=== PATIENT | female | born 1940 | race African-American/Black ===

== ENCOUNTER 2020-01-26 14:31 | Observation (INO) | payer MEDICARE ==
--- NOTE | 2020-01-26 14:47 | ER Document Report ---
ED Medical Screen (RME) - General Stated Complaint: ALTERED MENTAL STATUS Time Seen by Provider: 01/26/20 14:38 Mode of Arrival: Medic Information source: Patient, Emergency Med Personnel Notes: 79-year-old female with history of DC hypertension presents emergency department with report via EMS that she was at the [employer] machine outside the [facility] in [place] when she became dizzy and unresponsive. Daughters put her in the car and took her to the fire department. Patient does not remember anything. She reports she woke up at the fire department and did not know where she was. Patient is now alert and oriented no obvious neuro deficits. Denies history of stroke. Patient is in a good mood joking happy. I have greeted and performed a rapid initial assessment of this patient. A comprehensive ED assessment and evaluation of the patient, analysis of test results and completion of the medical decision making process will be conducted by additional ED providers.
--- NOTE | 2020-01-26 15:24 | EKG REPORT ---
SEVERITY:- ABNORMAL ECG - SINUS RHYTHM MULTIFORM ATRIAL PREMATURE COMPLEXES NONSPECIFIC INFERIOR ST-T CHANGES : Confirmed by: Phil Velez MD 26-Jan-2020 15:24:08
[2020-01-26 15:36] LABS: HEMATOCRIT 44.4 % (36.0-47.0); HEMOGLOBIN 13.9 g/dL (12.0-15.5); MEAN CORPUSCULAR HEMOGLOBIN 29.9 pg (27.0-33.4); MEAN CORPUSCULAR HGB CONC 31.3 g/dL (32.0-36.0); MEAN CORPUSCULAR VOLUME 96 fl (80-97); PLATELET COUNT 256 10^3/uL (150-450); RED BLOOD COUNT 4.65 10^6/uL (3.72-5.28); RED CELL DISTRIBUTION WIDTH 15.6 % (11.5-14.0); WHITE BLOOD COUNT 8.4 10^3/uL (4.0-10.5)
[2020-01-26 15:57] LABS: INTERNATIONAL RATION (INR) 1.09; PROTHROMBIN TIME 14.1 SEC (11.4-15.4)
[2020-01-26 15:58] LABS: PARTIAL THROMBOPLASTIN TIME 29.8 SEC (23.5-35.8)
[2020-01-26 15:59] LABS: ABSOLUTE LYMPHOCYTES# (MANUAL) 0.8 10^3/uL (0.5-4.7); ABSOLUTE MONOCYTES # (MANUAL) 0.4 10^3/uL (0.1-1.4); BASOPHILS % (MANUAL) 0 % (0-2); EOSINOPHILS % (MANUAL) 1 % (0-6); LYMPHOCYTES % (MANUAL) 9 % (13-45); MONOCYTES % (MANUAL) 5 % (3-13); SEGMENTED NEUTROPHILS % (MAN) 85 % (42-78); TOTAL CELLS COUNTED 100
[2020-01-26 16:00] LABS: ANISOCYTOSIS SLIGHT; PLATELET CLUMPS PRESENT; PLATELET COMMENT ADEQUATE
--- NOTE | 2020-01-26 16:09 | RADIOLOGY REPORT (SQ) ---
EXAM DESCRIPTION: CT HEAD WITHOUT COMPLETED DATE/TIME: 01/26/2020 3:59 pm REASON FOR STUDY: altered mental status COMPARISON: None. TECHNIQUE: Axial images acquired through the brain without intravenous contrast. Images reviewed wi th bone, brain and subdural windows. Additional sagittal and coronal reconstructions were generated. Images stored on PACS. All CT scanners at this facility use dose modulation, iterative reconstruction, and/or weight based d osing when appropriate to reduce radiation dose to as low as reasonably achievable (ALARA). [facility]: Dose Right [facility]: CareDose [facility]: Dose Right [facility]: Teradose 4D [facility]: Make Works RADIATION DOSE: CT Rad equipment meets quality standard of care and radiation dose reduction techniq ues were employed. CTDIvol: 53.2 mGy. DLP: 991 mGy-cm. mGy. LIMITATIONS: None. FINDINGS: VENTRICLES: Prominent. CEREBRUM: No masses. No hemorrhage. No midline shift. Areas of low density in the white matter mos t likely due to chronic micro-vascular ischemic change. No evidence for acute infarction. CEREBELLUM: No masses. No hemorrhage. No alteration of density. No evidence for acute infarction. EXTRAAXIAL SPACES: Mild age-related involutional change. No fluid collections. No masses. ORBITS AND GLOBE: No intra- or extraconal masses. Normal contour of globe without masses. CALVARIUM: No fracture. PARANASAL SINUSES: No fluid or mucosal thickening. SOFT TISSUES: No mass or hematoma. OTHER: No other significant finding. IMPRESSION: MILD CHRONIC CHANGES OF ATROPHY AND MICROVASCULAR ISCHEMIA. NO ACUTE PROCESS. EVIDENCE OF ACUTE STROKE: NO. TECHNICAL DOCUMENTATION: JOB ID: [id number] Quality ID # [id number]: Final reports with documentation of one or more dose reduction techniques (e.g., Au tomated exposure control, adjustment of the mA and/or kV according to patient size, use of iterative reconstruction technique) 2010 [employer]- All Rights Reserved Reading location - IP/workstation name: [email or web address]
--- NOTE | 2020-01-26 16:09 | RADIOLOGY REPORT (SQ) ---
EXAM DESCRIPTION: CHEST SINGLE VIEW COMPLETED DATE/TIME: 01/26/2020 4:00 pm REASON FOR STUDY: altered mental status COMPARISON: None. EXAM PARAMETERS: NUMBER OF VIEWS: One view. TECHNIQUE: Single frontal radiographic view of the chest acquired. RADIATION DOSE: NA LIMITATIONS: None. FINDINGS: LUNGS AND PLEURA: Chronic interstitial changes. Hyperexpansion of the lungs. No acute in filtrate or effusion. Linear atelectasis in the left mid lung. MEDIASTINUM AND HILAR STRUCTURES: No masses. Contour normal. HEART AND VASCULAR STRUCTURES: Heart size is borderline. There is no pulmonary edema. BONES: No acute findings. HARDWARE: None in the chest. OTHER: No other significant finding. IMPRESSION: Borderline cardiomegaly without pulmonary edema. Chronic lung changes. TECHNICAL DOCUMENTATION: JOB ID: [id number] 2010 [employer]- All Rights Reserved Reading location - IP/workstation name: [email or web address]
--- NOTE | 2020-01-26 16:11 | ER Document Report ---
ED General <CAITLYN VICKERS JR - Last Filed: 01/26/20 21:40> - General Mode of Arrival: Medic - Related Data Home Medications: metoprolol. vit b-12. losartan. clopidogrel. symbicort. furosemid. potassium. atorvastatin. albuterol. spiriva. ventolin <NAHUN PAGE - Last Filed: 01/27/20 10:07> - General Chief Complaint: Altered Mental Status Stated Complaint: ALTERED MENTAL STATUS Time Seen by Provider: 01/26/20 14:38 - HPI Notes: 79-year-old female with history of oxygen dependent COPD transported here via EMS after experiencing syncopal episode while standing at an [employer]. Patient was apparently caught by family members and did not sustain any injury. She appeared to suddenly become unresponsive. No tonic-clonic movements. No urinary incontinence. No abrasions of tongue. Patient was unresponsive to sternal rub when EMS arrived. Blood sugar at that time was 105. She regained consciousness during transport to the hospital and does not remember exactly what happened. She denies any prior syncopal episodes or any history of seizures. She denies chest pain. She denies headache. She feels well at this time with no other specific complaints. She is chronically on 2 L of nasal O2. She denies use of drugs or alcohol. Denies any history of thromboembolic disease. Remote history of WI. (NAHUN PAGE) - Related Data Allergies/Adverse Reactions: No Known Allergies Allergy (Unverified 01/26/20 18:42) Past Medical History - General Information source: Patient, Emergency Med Personnel - Social History Smoking Status: Former Smoker Family History: Reviewed & Not Pertinent Patient has suicidal ideation: No Patient has homicidal ideation: No - Past Medical History Cardiac Medical History: Reports: Hx Coronary Artery Disease, Hx Heart Attack Pulmonary Medical History: Reports: Hx COPD Neurological Medical History: Reports: None. Denies: Hx Seizures Endocrine Medical History: Denies: Hx Diabetes Mellitus Type 1, Hx Diabetes Mellitus Type 2 Malignancy Medical History: Reports: None <NAHUN PAGE - Last Filed: 01/27/20 10:07> Review of Systems <NAHUN PAGE - Last Filed: 01/27/20 10:07> - Review of Systems Notes: Constitutional: Negative for fever. HENT: Negative for sore throat. Eyes: Negative for visual changes. Cardiovascular: Negative for chest pain. Respiratory: Negative for shortness of breath. Gastrointestinal: Negative for abdominal pain, vomiting or diarrhea. Genitourinary: Negative for dysuria. Musculoskeletal: Negative for back pain. Skin: Negative for rash. Neurological: Negative for headaches, weakness or numbness. 10 point ROS negative except as marked above and in HPI. (NAHUN PAGE) Physical Exam <NAHUN PAGE - Last Filed: 01/27/20 10:07> - Vital signs Vitals: Resp Pulse Ox 13 85 L 01/26/20 14:36 01/26/20 14:36 - Notes Notes: GENERAL: Elderly female appearing in no acute distress. SKIN: Good turgor no rashes. HEAD: Normocephalic atraumatic. EYES: PERRLA. EOMI. Conjunctivae and sclerae clear. EARS: CANALS AND TMS CLEAR. NOSE: CLEAR. MOUTH: Moist mucosa. Good dentition. No stridor or edema. No drooling. NECK: Supple. No masses or thyromegaly. No adenopathy. Carotids 2+ without bruits. No JVD. BACK: Symmetrical without tenderness. CHEST: Respirations unlabored. Breath sounds clear and symmetrical. HEART: Regular rhythm. Harsh grade 3 systolic murmur left second interspace without radiation. ABDOMEN: Soft nontender without masses, organomegaly or rebound. Bowel sounds normally active. No bruits. GENITALIA: Deferred. EXTREMITIES: 2+ bilateral. No calf tenderness. Cap refill less than 1.5 seconds. Dorsalis pedis and posterior tibial pulses 3+ and symmetrical. NEUROLOGICAL: GCS 15. Alert and oriented x3. Fluent speech. Cranial nerves II through XII intact. Sensorimotor and cerebellar normal. Normal tone. PSYCHIATRIC: Appropriate affect. (NAHUN PAGE) Course - Laboratory Result Diagrams: 01/26/20 15:00 01/26/20 16:25 - Diagnostic Test Radiology reviewed: Reports reviewed - EKG Interpretation by Ut EKG shows normal: Sinus rhythm Rhythm: Other - Multiform ventricular premature complexes <CAITLYN VICKERS JR - Last Filed: 01/26/20 21:40> - Laboratory Result Diagrams: 01/27/20 04:38 01/27/20 04:38 <NAHUN PAGE - Last Filed: 01/27/20 10:07> - Re-evaluation Re-evalutation: 01/26/20 18:39 Elderly lady with unexplained syncopal episode. Tox screen is negative. Blood sugar was normal. Patient is chronically oxygen dependent COPD. Her blood gas is consistent with her usual baseline on her oxygen which she was using at the time of the episode. EKG showed no acute ST changes. Her troponin is minimally elevated. Her d-dimer is also elevated. CTA of chest has been requested and remains pending at this time. I did a bedside [id number] ultrasound which demonstrated no gross abnormality of LV contraction. Aortic valve appears somewhat thickened and we do note that this lady has a harsh systolic murmur. We clearly need to rule out PE and other considerations would be aortic valvular disease or cardiac dysrhythmia. She will need formal echocardiogram and admission after CTA of the chest has been reported. Further care of this patie nt is turned over to Dr. Vickers at this time. (NAHNU PAGE) - Vital Signs Vital signs: Temp Pulse Resp BP Pulse Ox 98.3 F 86 18 135/70 H 90 L 01/27/20 07:20 01/27/20 08:13 01/27/20 08:13 01/27/20 07:20 01/27/20 08:13 - Laboratory Laboratory results interpreted by me: 01/26/20 01/26/20 01/26/20 15:00 15:47 16:25 MCHC 31.3 L RDW 15.6 H Seg Neuts % (Manual) 85 H Lymphocytes % (Manual) 9 L D-Dimer 4.55 H VBG pCO2 65.5 H* VBG HCO3 37.0 H Chloride Carbon Dioxide BUN Est GFR ( Amer) Est GFR (MDRD) Non-Af NT-Pro-B Natriuret Pep 01/26/20 01/26/20 16:25 16:25 MCHC RDW Seg Neuts % (Manual) Lymphocytes % (Manual) D-Dimer VBG pCO2 VBG HCO3 Chloride 96 L Carbon Dioxide 37 H BUN 30 H Est GFR ( Amer) 56 L Est GFR (MDRD) Non-Af 47 L NT-Pro-B Natriuret Pep 1020 H Critical Care Note - Critical Care Note Total time excluding time spent on procedures (mins): 90 <CAITLYN VICKERS JR - Last Filed: 01/26/20 21:40> - Critical Care Note Comments: Dr Falk and Dr Keller are patient's doctors. Patient has a history of COPD and I spoke with patient about when she began smoking at least 1 pack a day when she was 14 years old [place] and quit last October. She has been dependent on 2 L oxygen continuously since that time. Patient was otherwise in no distress when I spoke with her at 2099. I spoke with Dr. Arpit Dawson about this case at 2099 and he advised orthostatics. Orthostatics were performed and I was in the room with Renu PRESCOTT when patient sat up with tachycardia 101 with PACs and this slowly decreased to normal sinus and upon standing patient had a similar episode with myself on her left arm and Renu PRESCOTT on the right arm patient had some tachycardia which within a few minutes resolved itself. I again spoke with Dr. Arpit Dawson at 2131 and he advised admission. Patient has been O2 dependent for the last 2-1/2 years. The patient spoke with her 56-year-old son by telephone and was advised of her staying in the hospital. Also dental technician apprentice and nursing staff advised of issue with contrast with IV pump during CTA. (CAITLYN VICKERS JR) Discharge - Discharge Unit Admitted: Medical Floor <CAITLYN VICKERS JR - Last Filed: 01/26/20 21:40> - Discharge Unit Admitted: Medical Floor <NAHUN PAGE - Last Filed: 01/27/20 10:07> - Discharge Clinical Impression: Syncope and collapse, Hypoxia, Ex-smoker for less than 1 year, Supplemental oxygen dependent, Orthostatic dizziness Condition: Good Disposition: ADMITTED OBSERVATION
[2020-01-26 16:16] LABS: D-DIMER 4.55 ug/mL (0.00-0.50)
[2020-01-26 16:36] LABS: VENOUS BLOOD BASE EXCESS 9.6 mmol/L; VENOUS BLOOD PH 7.37 (7.30-7.42)
[2020-01-26 16:39] LABS: VENOUS BLOOD PCO2 65.5 mmHg (35-63)
[2020-01-26 16:54] LABS: ALBUMIN 3.5 g/dL (3.5-5.0); ALKALINE PHOSPHATASE 86 U/L (38-126); ASPARTATE AMINO TRANSFERASE 36 U/L (14-36); BILIRUBIN,DIRECT 0.3 mg/dL (0.0-0.4); BILIRUBIN,TOTAL 0.3 mg/dL (0.2-1.3); BLOOD UREA NITROGEN 30 mg/dL (7-20); CALCIUM 9.1 mg/dL (8.4-10.2); CHLORIDE 96 mmol/L (98-107); CREATINE KINASE 33 U/L (30-135); GLUCOSE 104 mg/dL (75-110); POTASSIUM 4.6 mmol/L (3.6-5.0)
[2020-01-26 17:00] LABS: ANION GAP 6 (5-19); CARBON DIOXIDE 37 mmol/L (22-30)
[2020-01-26 17:02] LABS: APPEARANCE,URINE CLEAR; BILIRUBIN,URINE NEGATIVE (NEGATIVE); COLOR,URINE STRAW; GLUCOSE, URINE NEGATIVE (NEGATIVE); KETONES,URINE NEGATIVE (NEGATIVE); PROTEIN,URINE NEGATIVE (NEGATIVE); URINE SPECIFIC GRAVITY 1.009; UROBILINOGEN,URINE NEGATIVE mg/dL (<2.0)
[2020-01-26 17:06] LABS: CREATINE KINASE MB 2.32 ng/mL (<4.55)
[2020-01-26 17:12] LABS: TROPONIN I 0.047 ng/mL
[2020-01-26 17:31] LABS: URINE AMPHETAMINES SCREEN NEGATIVE; URINE BARBITURATES SCREEN NEGATIVE; URINE BENZODIAZEPINES SCREEN NEGATIVE; URINE COCAINE SCREEN NEGATIVE; URINE MARIJUANA (THC) SCREEN NEGATIVE; URINE METHADONE SCREEN NEGATIVE; URINE PHENCYCLIDINE SCREEN NEGATIVE
--- NOTE | 2020-01-26 20:30 | RADIOLOGY REPORT (SQ) ---
CLINICAL INDICATION: syncope, elevated d-dimer. . TECHNIQUE: Noncontrast spiral axial CT imaging was obtained of the chest with multiplanar reconstructions. This exam was performed according to our departmental dose-optimization program, which includes automated exposure control, adjustment of the mA and/or kV according to patient size and/or use of iterative reconstruction techniques. Contrast enhanced arteriography imaging was not obtained due to reported IV infiltration. COMPARISON: None. CORRELATION: None. FINDINGS: The heart is prominent with coronary calcification.. No pericardial effusion. No bulky mediastinal adenopathy. Shotty mediastinal lymph nodes. The aorta is calcified but nonaneurysmal The lungs demonstrate chronic parenchymal changes. Detail obscured by motion. Interstitial fibrotic changes are also identified. There is a patchy area of airspace disease superior segment right lower lobe and anterior segment left upper lobe of unknown chronicity. Detail is obscured by patient motion and arms. Visualized abdominal contents demonstrate significant vascular calcification. Visualized bones demonstrate age-appropriate osteoarthritis. IMPRESSION: Artifact the patient's arms. Imaging is degraded by patient motion, with resultant artifact. The best possible images were obtained. Chronic parenchymal lung change. Patchy areas of airspace disease left upper lobe right lower lobe, of unknown chronicity. Contrast-enhanced imaging was not obtained due to IV infiltration.
[2020-01-26] MEDS ORDERED: MAGNESIUM HYDROXIDE SUSP 30 ML UDCUP PO PRN (21:31)
[2020-01-26] MEDS ORDERED: ACETAMINOPHEN 325 MG TABLET PO PRN (21:31)
[2020-01-26] MEDS ORDERED: MAG HYDROX/AL HYDROX/SIMETH SUSP 30 ML UDCUP PO PRN (21:31)
[2020-01-26] MEDS ORDERED: NORMAL SALINE 1000 ML 1,000 ML IV SCH (21:45)
[2020-01-26] MEDS ORDERED: LACTULOSE SYRUP 20 GM/30 ML UDCUP PO ONE (22:00)
[2020-01-26 22:03] LABS: PHOSPHORUS 4.1 mg/dL (2.5-4.5)
[2020-01-26] MEDS: HEPARIN SOD (PORCINE) 5,000 UNIT/ML 1 ML VIAL SUBCUT SCH (23:38)
[2020-01-26] MEDS: LEVALBUTEROL HCL NEB 1.25 MG/3 ML AMPUL NEB SCH (23:51)
--- NOTE | 2020-01-27 05:06 | PDOC H&P ---
History of Present Illness Admission Date/PCP: 01/26/20 21:44 CHAI CHIRINOS MD Patient complains of: Syncope History of Present Illness: KENNEDY BUTCHER is a 79 year old female with a past medical history of arthritis, generalized debility ambulating with walker, hypertension, coronary artery disease and oxygen dependent COPD. She presents to the emergency department after a syncopal episode while standing at an [employer] she was assisted to the ground by her daughters without injury. There is no report of limb shaking or seizure-like activity. Patient recalls coming to well in the ambulance and denied any pain preceding or subsequently. She denies palpitations, dizziness upon standing, previous episode. She denies recent change in medications and is otherwise felt well. In the emergency department she has an unremarkable work- up with exception to orthostatic hypotension and an EKG showing PVCs. Past Medical History Cardiac Medical History: Reports: Coronary Artery Disease, Myocardial Infarction Pulmonary Medical History: Reports: Chronic Obstructive Pulmonary Disease (COPD) Neurological Medical History: Reports: None Denies: Seizures Endocrine Medical History: Denies: Diabetes Mellitus Type 1, Diabetes Mellitus Type 2 Malignancy Medical History: Reports: None Social History Information Source: Patient Lives with: Alone - Daughters live next door Smoking Status: Former Smoker Electronic Cigarette use?: No Number of Years Smokin Last Time Smoked: less 1 year ago Frequency of Alcohol Use: None Hx Recreational Drug Use: No Drugs: None Hx Prescription Drug Abuse: No - Advance Directive Resuscitation Status: Full Code Family History Family History: COPD, Hypertension Parental Family History Reviewed: Yes Children Family History Reviewed: Yes Sibling(s) Family History Reviewed.: Yes Medication/Allergy Home Medications: Clopidogrel Bisulfate [Plavix 75 mg Tablet] 01/26/20 Cyanocobalamin (Vitamin B-12) [Vitamin B12] PO 01/26/20 Losartan Potassium 100 mg PO 01/26/20 Metoprolol Succinate [Toprol Xl 50 mg Tab.sr] 50 mg PO DAILY 01/26/20 Allergies/Adverse Reactions: No Known Allergies Allergy (Unverified 01/26/20 18:42) Review of Systems Constitutional: ABSENT: chills, fever(s), headache(s), weight gain, weight loss Eyes: ABSENT: visual disturbances Ears: ABSENT: hearing changes Cardiovascular: ABSENT: chest pain, dyspnea on exertion, edema, orthropnea, palpitations Respiratory: ABSENT: cough, hemoptysis Gastrointestinal: ABSENT: abdominal pain, constipation, diarrhea, hematemesis, hematochezia, nausea, vomiting Genitourinary: ABSENT: dysuria, hematuria Musculoskeletal: ABSENT: joint swelling Integumentary: ABSENT: rash, wounds Neurological: ABSENT: abnormal gait, abnormal speech, confusion, dizziness, foca l weakness, syncope Psychiatric: ABSENT: anxiety, depression, homidical ideation, suicidal ideation Endocrine: ABSENT: cold intolerance, heat intolerance, polydipsia, polyuria Hematologic/Lymphatic: ABSENT: easy bleeding, easy bruising Physical Exam Vital Signs: Temp Pulse Resp BP Pulse Ox 98.3 F 67 17 153/68 H 95 01/27/20 04:00 01/27/20 04:00 01/27/20 04:00 01/26/20 21:42 01/27/20 04:00 Intake & Output 01/25/20 01/26/20 01/27/20 11:59 11:59 11:59 Intake Total 100 Balance 100 Weight 54.1 kg General appearance: PRESENT: no acute distress, well-developed, well-nourished Head exam: PRESENT: atraumatic, normocephalic Eye exam: PRESENT: conjunctiva pink, EOMI, PERRLA. ABSENT: scleral icterus Ear exam: PRESENT: normal external ear exam Mouth exam: PRESENT: moist, tongue midline Neck exam: ABSENT: carotid bruit, JVD, lymphadenopathy, thyromegaly Respiratory exam: PRESENT: clear to auscultation keshia, prolonged expiratory phas, symmetrical. ABSENT: rales, rhonchi, wheezes Cardiovascular exam: PRESENT: RRR. ABSENT: diastolic murmur, rubs, systolic murmur Pulses: PRESENT: normal dorsalis pedis pul Vascular exam: PRESENT: normal capillary refill GI/Abdominal exam: PRESENT: normal bowel sounds, soft. ABSENT: distended, guarding, mass, organolmegaly, rebound, tenderness Rectal exam: PRESENT: deferred Extremities exam: PRESENT: full ROM, +1 edema - Bilaterally. ABSENT: calf t enderness, clubbing, pedal edema Neurological exam: PRESENT: alert, awake, oriented to person, oriented to place, oriented to time, oriented to situation, CN II-XII grossly intact. ABSENT: motor sensory deficit Psychiatric exam: PRESENT: appropriate affect, normal mood. ABSENT: homicidal ideation, suicidal ideation Skin exam: PRESENT: dry, intact, warm. ABSENT: cyanosis, rash Results Laboratory Results: 01/26/20 15:00 01/26/20 16:25 01/26/20 01/26/20 01/26/20 14:45 14:45 15:00 WBC Cancelled 8.4 RBC Cancelled 4.65 Hgb Cancelled 13.9 Hct Cancelled 44.4 MCV Cancelled 96 MCH Cancelled 29.9 MCHC Cancelled 31.3 L RDW Cancelled 15.6 H Plt Count Cancelled 256 Seg Neutrophils % Cancelled Not Reportable VBG pH VBG pCO2 VBG HCO3 VBG Base Excess Sodium Cancelled Potassium Cancelled Chloride Cancelled Carbon Dioxide Cancelled Anion Gap Cancelled BUN Cancelled Creatinine Cancelled Est GFR ( Amer) Cancelled Est GFR (Non-Af Amer) Cancelled Glucose Cancelled Calcium Cancelled Phosphorus Magnesium Total Bilirubin Cancelled AST Cancelled Alkaline Phosphatase Cancelled Total Protein Cancelled Albumin Cancelled Urine Color Urine Appearance Urine pH Ur Specific [place] Urine Protein Urine Glucose (UA) Urine Ketones Urine Blood Urine RBC (Auto) 01/26/20 01/26/20 01/26/20 16:25 16:25 16:25 WBC RBC Hgb Hct MCV MCH MCHC RDW Plt Count Seg Neutrophils % VBG pH 7.37 VBG pCO2 65.5 H* VBG HCO3 37.0 H VBG Base Excess 9.6 Sodium 139.2 Potassium 4.6 Chloride 96 L Carbon Dioxide 37 H Anion Gap 6 BUN 30 H Creatinine 1.13 Est GFR ( Amer) 56 L Est GFR (Non-Af Amer) Glucose 104 Calcium 9.1 Phosphorus 4.1 Magnesium 2.3 Total Bilirubin 0.3 AST 36 Alkaline Phosphatase 86 Total Protein 7.0 Albumin 3.5 Urine Color Urine Appearance Urine pH Ur Specific [place] Urine Protein Urine Glucose (UA) Urine Ketones Urine Blood Urine RBC (Auto) 01/26/20 16:30 WBC RBC Hgb Hct MCV MCH MCHC RDW Plt Count Seg Neutrophils % VBG pH VBG pCO2 VBG HCO3 VBG Base Excess Sodium Potassium Chloride Carbon Dioxide Anion Gap BUN Creatinine Est GFR ( Amer) Est GFR (Non-Af Amer) Glucose Calcium Phosphorus Magnesium Total Bilirubin AST Alkaline Phosphatase Total Protein Albumin Urine Color STRAW Urine Appearance CLEAR Urine pH 7.0 Ur Specific [place] 1.009 Urine Protein NEGATIVE Urine Glucose (UA) NEGATIVE Urine Ketones NEGATIVE Urine Blood NEGATIVE Urine RBC (Auto) 0 01/26/20 01/26/20 01/26/20 14:45 14:45 15:00 Creatine Kinase Cancelled CK-MB (CK-2) Cancelled Troponin I Cancelled NT-Pro-B Natriuret Pep Cancelled 01/26/20 01/26/20 01/26/20 16:25 16:25 16:25 Creatine Kinase 33 CK-MB (CK-2) 2.32 Troponin I 0.047 NT-Pro-B Natriuret Pep 1020 H 01/26/20 20:12 Creatine Kinase CK-MB (CK-2) Troponin I 0.076 NT-Pro-B Natriuret Pep Impressions: Chest X-Ray 01/26/20 14:44 IMPRESSION: Borderline cardiomegaly without pulmonary edema. Chronic lung changes. Head CT 01/26/20 14:44 IMPRESSION: MILD CHRONIC CHANGES OF ATROPHY AND MICROVASCULAR ISCHEMIA. NO ACUTE PROCESS. EVIDENCE OF ACUTE STROKE: NO. Chest/Abdomen CTA 01/26/20 17:39 IMPRESSION: Artifact the patient's arms. Imaging is degraded by patient motion, with resultant artifact. The best possible images were obtained. Chronic parenchymal lung change. Patchy areas of airspace disease left upper lobe right lower lobe, of unknown chronicity. Contrast-enhanced imaging was not obtained due to IV infiltration. Assessment and Plan - Diagnosis (1) Syncope and collapse Is this a current diagnosis for this admission?: Yes Plan: Most likely secondary to orthostatic hypotension with mild volume depletion. Telemetry monitoring, follow-up cardiac enzymes, orthostatic hypotension and physical therapy evaluation. (2) Debility Is this a current diagnosis for this admission?: Yes Plan: Follow-up PT eval, discharge planning ordered (3) Orthostatic dizziness Is this a current diagnosis for this admission?: Yes Plan: IV fluid challenge, TAMMY stockings, lifestyle modification changing position, follow-up orthostatic blood pressures (4) Supplemental oxygen dependent Is this a current diagnosis for this admission?: Yes Plan: Nasal cannula oxygen ordered. - Time Time Spent with patient: 25-34 minutes - Inpatient Certification Medical Necessity: Need Close Monitoring Due to Risk of Patient Decompensation
[2020-01-27 05:08] LABS: ABSOLUTE BASOPHILS # (AUTO) 0.1 10^3/uL (0.0-0.2); ABSOLUTE EOSINOPHILS # (AUTO) 0.1 10^3/uL (0.0-0.6); ABSOLUTE LYMPHOCYTES (AUTO) 0.5 10^3/uL (0.5-4.7); BASOPHILS % (AUTO) 0.7 % (0-2); EOSINOPHILS % (AUTO) 1.9 % (0-6); HEMATOCRIT 30.8 % (36.0-47.0); MEAN CORPUSCULAR HEMOGLOBIN 30.8 pg (27.0-33.4); MEAN CORPUSCULAR HGB CONC 32.5 g/dL (32.0-36.0); MEAN CORPUSCULAR VOLUME 95 fl (80-97); MONOCYTES % (AUTO) 13.4 % (3-13); PLATELET COUNT 274 10^3/uL (150-450); RED BLOOD COUNT 3.25 10^6/uL (3.72-5.28); RED CELL DISTRIBUTION WIDTH 15.1 % (11.5-14.0); TOTAL CELLS COUNTED % (AUTO) 100 %; WHITE BLOOD COUNT 7.7 10^3/uL (4.0-10.5)
[2020-01-27 05:24] LABS: BLOOD UREA NITROGEN 24 mg/dL (7-20); CALCIUM 8.6 mg/dL (8.4-10.2); GLUCOSE 81 mg/dL (75-110); POTASSIUM 4.3 mmol/L (3.6-5.0)
[2020-01-27 05:30] LABS: CHLORIDE 99 mmol/L (98-107)
[2020-01-27 05:44] LABS: CARBON DIOXIDE 40 mmol/L (22-30)
[2020-01-27 05:45] LABS: ANION GAP 3 (5-19)
[2020-01-27] MEDS: HEPARIN SOD (PORCINE) 5,000 UNIT/ML 1 ML VIAL SUBCUT SCH ×3 (06:18→23:30)
[2020-01-27] MEDS: LEVALBUTEROL HCL NEB 1.25 MG/3 ML AMPUL NEB SCH ×2 (08:13→16:18)
[2020-01-27] MEDS: CLOPIDOGREL BISULFATE 75 MG TABLET PO SCH (10:54)
[2020-01-27] MEDS: METOPROLOL SUCCINATE 50 MG TAB.SR.24H PO SCH (10:54)
[2020-01-27] MEDS: DOCUSATE SODIUM 100 MG CAPSULE PO SCH ×2 (10:54→18:12)
--- NOTE | 2020-01-27 16:38 | PDOC PROGRESS REPORT ---
Subjective Progress Note for:: 01/27/20 Subjective:: KENNEDY BUTCHER is a 79 year old female with a past medical history of arthritis, generalized debility ambulating with walker, hypertension, coronary artery disease and oxygen dependent COPD who was admitted early this morning by the Manager Of Finance for Syncope. The patient was seen on morning rounds and again this afternoon. Both times, she was seen sitting up to the recliner, comfortably, on supplemental oxygen via nasal cannula. She reports that she is feeling much better today. She does report that she became significantly short of breath when ambulating with the nurse this afternoon. She reports that that is about half the distance that she typically is able to tolerate. Otherwise, she denies fever, chest pain, palpitations, cough, abdominal pain, nausea vomiting diarrhea. She has no other questions or concerns at this time. No concerns per nursing. Reason For Visit: SYNCOPE ORTHOSTATIC HYPOTENSION Physical Exam Vital Signs: Temp Pulse Resp BP Pulse Ox 98.5 F 83 16 117/66 94 01/27/20 11:42 01/27/20 11:42 01/27/20 11:42 01/27/20 11:42 01/27/20 11:42 Intake & Output 01/26/20 01/27/20 01/28/20 06:59 06:59 06:59 Intake Total 100 240 Balance 100 240 Weight 40 kg General appearance: PRESENT: no acute distress, cooperative, thin, well- developed Head exam: PRESENT: atraumatic, normocephalic Eye exam: PRESENT: conjunctiva pink, EOMI, PERRLA. ABSENT: scleral icterus Ear exam: PRESENT: normal external ear exam Mouth exam: PRESENT: moist, tongue midline Neck exam: ABSENT: carotid bruit, JVD, lymphadenopathy, thyromegaly Respiratory exam: PRESENT: clear to auscultation keshia, prolonged expiratory phas, symmetrical, unlabored, other - supplemental oxygen via NC. ABSENT: rales, rhonchi, wheezes Cardiovascular exam: PRESENT: RRR. ABSENT: diastolic murmur, rubs, systolic murmur Pulses: PRESENT: normal dorsalis pedis pul Vascular exam: PRESENT: normal capillary refill GI/Abdominal exam: PRESENT: normal bowel sounds, soft. ABSENT: distended, guarding, mass, organolmegaly, rebound, tenderness Rectal exam: PRESENT: deferred Extremities exam: PRESENT: full ROM. ABSENT: calf tenderness, clubbing, pedal edema Musculoskeletal exam: PRESENT: ambulatory - with FWW Neurological exam: PRESENT: alert, awake, oriented to person, oriented to place, oriented to time, oriented to situation, CN II-XII grossly intact. ABSENT: motor sensory deficit Psychiatric exam: PRESENT: appropriate affect, normal mood. ABSENT: homicidal ideation, suicidal ideation Skin exam: PRESENT: dry, intact, warm. ABSENT: cyanosis, rash Results Laboratory Results: 01/27/20 04:38 01/27/20 04:38 01/26/20 01/26/20 01/26/20 16:25 16:25 16:25 WBC RBC Hgb Hct MCV MCH MCHC RDW Plt Count Seg Neutrophils % VBG pH 7.37 VBG pCO2 65.5 H* VBG HCO3 37.0 H VBG Base Excess 9.6 Sodium 139.2 Potassium 4.6 Chloride 96 L Carbon Dioxide 37 H Anion Gap 6 BUN 30 H Creatinine 1.13 Est GFR ( Amer) 56 L Glucose 104 Calcium 9.1 Phosphorus 4.1 Magnesium 2.3 Total Bilirubin 0.3 AST 36 Alkaline Phosphatase 86 Total Protein 7.0 Albumin 3.5 Urine Color Urine Appearance Urine pH Ur Specific [place] Urine Protein Urine Glucose (UA) Urine Ketones Urine Blood Urine RBC (Auto) 01/26/20 01/27/20 01/27/20 16:30 04:38 04:38 WBC 7.7 RBC 3.25 L Hgb 10.0 L D Hct 30.8 L MCV 95 MCH 30.8 MCHC 32.5 RDW 15.1 H Plt Count 274 Seg Neutrophils % 78.0 VBG pH VBG pCO2 VBG HCO3 VBG Base Excess Sodium 141.8 Potassium 4.3 Chloride 99 Carbon Dioxide 40 H* Anion Gap 3 L BUN 24 H Creatinine 0.97 Est GFR ( Amer) > 60 Glucose 81 Calcium 8.6 Phosphorus Magnesium Total Bilirubin AST Alkaline Phosphatase Total Protein Albumin Urine Color STRAW Urine Appearance CLEAR Urine pH 7.0 Ur Specific [place] 1.009 Urine Protein NEGATIVE Urine Glucose (UA) NEGATIVE Urine Ketones NEGATIVE Urine Blood NEGATIVE Urine RBC (Auto) 0 01/26/20 01/26/20 01/26/20 14:45 14:45 15:00 Creatine Kinase Cancelled CK-MB (CK-2) Cancelled Troponin I Cancelled NT-Pro-B Natriuret Pep Cancelled 01/26/20 01/26/20 01/26/20 16:25 16:25 16:25 Creatine Kinase 33 CK-MB (CK-2) 2.32 Troponin I 0.047 NT-Pro-B Natriuret Pep 1020 H 01/26/20 20:12 Creatine Kinase CK-MB (CK-2) Troponin I 0.076 NT-Pro-B Natriuret Pep Impressions: Chest X-Ray 01/26/20 14:44 IMPRESSION: Borderline cardiomegaly without pulmonary edema. Chronic lung changes. Head CT 01/26/20 14:44 IMPRESSION: MILD CHRONIC CHANGES OF ATROPHY AND MICROVASCULAR ISCHEMIA. NO ACUTE PROCESS. EVIDENCE OF ACUTE STROKE: NO. Chest/Abdomen CTA 01/26/20 17:39 IMPRESSION: Artifact the patient's arms. Imaging is degraded by patient motion, with resultant artifact. The best possible images were obtained. Chronic parenchymal lung change. Patchy areas of airspace disease left upper lobe right lower lobe, of unknown chronicity. Contrast-enhanced imaging was not obtained due to IV infiltration. Assessment and Plan - Diagnosis (1) Syncope and collapse Is this a current diagnosis for this admission?: Yes Plan: Most likely secondary to orthostatic hypotension with mild volume depletion. Pt was noted to become profoundly hypoxic and bradycardic w/ ambulation while on her baseline O2. SpO2 dropped to low 80s with HR trending down to mid-40s. Recovered with rest and increased O2. Patient is admitted to the medical floor on continuous cardiac telemetry. Rehydrated with IV fluids. Will obtain VQ scan due to elevated D-dimer, hypoxia, and syncope. Fall precautions. PT consultation. (2) Orthostatic dizziness Is this a current diagnosis for this admission?: Yes Plan: Resolved following IV fluids. Continue TAMMY hose. Fall precautions. (3) COPD (chronic obstructive pulmonary disease) Qualifiers: COPD type: unspecified COPD Qualified Code(s): J44.9 - Chronic obstructive pulmonary disease, unspecified Is this a current diagnosis for this admission?: Yes Plan: Stable and not in exacerbation at this time. Will continue her home regiment of Spiriva, Symbicort, and Dymista Continue supplemental oxygen as needed to keep SpO2 >89% CPAP nightly No indications for antibiotics or steroid therapy at this time. (4) HTN (hypertension) Is this a current diagnosis for this admission?: Yes Plan: Continue home dose Losartan and furosemide. Cardiac diet. (5) Debility Is this a current diagnosis for this admission?: Yes Plan: Pt consulted. Discharge planning consulted. (6) Supplemental oxygen dependent Is this a current diagnosis for this admission?: Yes Plan: Nasal cannula oxygen ordered. CPAP at night - Time Time Spent with patient: 35 or more minutes Medications reviewed and adjusted accordingly: Yes Anticipated discharge: Home Within: within 24 hours
[2020-01-27] MEDS ORDERED: FUROSEMIDE 40 MG TABLET PO SCH (18:00)
[2020-01-27] MEDS ORDERED: POTASSIUM CHLORIDE 10 MEQ TABLET.ER PO SCH (18:00)
[2020-01-27] MEDS: PHOSPHORUS #1 250 MG TABLET PO SCH (18:12)
[2020-01-28] MEDS: LEVALBUTEROL HCL NEB 1.25 MG/3 ML AMPUL NEB SCH ×2 (00:07→07:44)
[2020-01-28] MEDS: HEPARIN SOD (PORCINE) 5,000 UNIT/ML 1 ML VIAL SUBCUT SCH (05:27)
--- NOTE | 2020-01-28 08:53 | RADIOLOGY REPORT (SQ) ---
EXAM DESCRIPTION: CHEST 2 VIEWS COMPLETED DATE/TIME: 01/28/2020 8:36 am REASON FOR STUDY: DYSPNEA (ALSO FOR VQ SCAN)_ COMPARISON: 01/26/2020 EXAM PARAMETERS: NUMBER OF VIEWS: two views TECHNIQUE: Digital Frontal and Lateral radiographic views of the chest acquired. RADIATION DOSE: NA LIMITATIONS: none FINDINGS: LUNGS AND PLEURA: There is hyperexpansion. Linear scarring in the left midlung field. Bl unting of the costophrenic angles most likely pleural thickening. No focal consolidation. No pneumo thorax. MEDIASTINUM AND HILAR STRUCTURES: No masses or contour abnormalities. HEART AND VASCULAR STRUCTURES: Heart is slightly enlarged. No failure. BONES: No acute findings. HARDWARE: None in the chest. OTHER: No other significant finding. IMPRESSION: COPD with chronic parenchymal changes. No acute findings. TECHNICAL DOCUMENTATION: JOB ID: [id number] [employer]- All Rights Reserved Reading location - IP/workstation name: [email or web address]
--- NOTE | 2020-01-28 08:55 | RADIOLOGY REPORT (SQ) ---
EXAM DESCRIPTION: NM LUNG PERFUSION SCAN COMPLETED DATE/TIME: 01/28/2020 8:35 am REASON FOR STUDY: dyspnea COMPARISON: None. RADIONUCLIDE AND DOSE: 4.98 millicuries TC-99m MAA The route of agent administration: Intravenous TECHNIQUE: Eight views of the lungs acquired following injection of MAA. LIMITATIONS: None. FINDINGS: PERFUSION: Mild heterogeneous uptake on perfusion images. No large defects.. OTHER: No other significant finding. IMPRESSION: Heterogeneous uptake. No large segmental defects. TECHNICAL DOCUMENTATION: JOB ID: [id number] [employer]- All Rights Reserved Reading location - IP/workstation name: [email or web address]
[2020-01-28] MEDS: DOCUSATE SODIUM 100 MG CAPSULE PO SCH (09:49)
[2020-01-28] MEDS: METOPROLOL SUCCINATE 50 MG TAB.SR.24H PO SCH (09:49)
[2020-01-28] MEDS: CLOPIDOGREL BISULFATE 75 MG TABLET PO SCH (09:50)
[2020-01-28] MEDS: PHOSPHORUS #1 250 MG TABLET PO SCH (09:50)
[2020-01-28] MEDS ORDERED: FLUTICASONE/VILANTEROL 200-25 MCG/DOSE IH SCH (10:00)
[2020-01-28] MEDS ORDERED: UMECLIDINIUM BROMIDE 62.5 MCG/DOSE IH SCH (10:00)
[2020-01-28] MEDS ORDERED: (PENDING PHARMACY ID) (Azelastine/Fluticasone [Dymista Nasal Spray] 1 SPRAY) NASL SCH (10:00)
[2020-01-28] MEDS ORDERED: LOSARTAN POTASSIUM 50 MG TABLET PO SCH (10:00)
[2020-01-28] MEDS ORDERED: (PENDING PHARMACY ID) (Tiotropium Bromide [Spiriva Respimat] 1 PUFF) IH SCH (10:00)
[2020-01-28] MEDS ORDERED: (PENDING PHARMACY ID) (Losartan Potassium [Losartan Potassium] 100 MG) PO SCH (10:00)
[2020-01-28] MEDS ORDERED: FLUTICASONE NASAL SPRAY 50 MCG/SPRY 120 SPRAY/16 GM NASL SCH (10:00)
[2020-01-28 14:24] VITALS: BP 171/74
--- NOTE | 2020-01-28 16:08 | PDOC DISCHARGE SUMMARY ---
Impression - Admit/DC Date/PCP Admission Date/Primary Care Provider: 01/26/20 21:44 CHAI CHIRINOS MD Discharge Date: 01/28/20 - Discharge Diagnosis (1) Syncope and collapse Is this a current diagnosis for this admission?: Yes (2) Orthostatic dizziness Is this a current diagnosis for this admission?: Yes (3) COPD (chronic obstructive pulmonary disease) Is this a current diagnosis for this admission?: Yes (4) HTN (hypertension) Is this a current diagnosis for this admission?: Yes (5) Debility Is this a current diagnosis for this admission?: Yes (6) Supplemental oxygen dependent Is this a current diagnosis for this admission?: Yes - Additional Information Resuscitation Status: Full Code Discharge Activity: Activity As Tolerated, Balance Activity w/Rest, Supervised Activity Referrals: [employer] [facility] [Outside] - 01/31/20 CHAI CHIRINOS MD [Primary Care Provider] - 02/07/20 1:30 pm Home Medications: Clopidogrel Bisulfate [Plavix 75 mg Tablet] 75 mg PO DAILY 01/26/20 Losartan Potassium 100 mg PO DAILY 01/26/20 Metoprolol Succinate [Toprol Xl 50 mg Tab.sr] 50 mg PO DAILY 01/26/20 Acetaminophen [Tylenol 325 mg Tablet] 650 mg PO Q4HP PRN tablet 01/27/20 Albuterol Sulfate [Ventolin 0.083% Neb 2.5 mg/3 mL Ampul] 1 vial IH RTBIDP PRN 01/27/20 Albuterol Sulfate [Ventolin Hfa 8 gm Mdi] 2 puff IH Q6HP PRN 01/27/20 Atorvastatin Calcium [Lipitor 20 mg Tablet] 20 mg PO QHS 01/27/20 Azelastine/Fluticasone [Dymista Nasal [place]] 1 spray NASL DAILY 01/27/20 Budesonide/Formoterol Fumarate [Symbicort HFA 160-4.5 mcg Inhaler 6 gm] 2 puff IH BID 01/27/20 Cyanocobalamin (Vitamin B-12) [Vitamin B-12] 1,000 mcg PO DAILY 01/27/20 Furosemide [Lasix 40 mg Tablet] 40 mg PO Q2D 01/27/20 Guaifenesin [Cough Syrup] 5 ml PO ASDIR PRN 01/27/20 Phosphorus #1 [K-Phos Neutral 250 mg Tablet] 250 mg PO BID 01/27/20 Potassium Chloride [Klor-Con 10 Meq Tablet ER] 10 meq PO Q2D 01/27/20 Tiotropium [place] [Spiriva Respimat] 1 puff IH DAILY 01/27/20 History of Present Illiness History of Present Illness: Per H&P by Dr. Dawson: KENNEDY BUTCHER is a 79 year old female with a past medical history of arthritis, generalized debility ambulating with walker, hypertension, coronary artery disease and oxygen dependent COPD. She presents to the emergency department after a syncopal episode while standing at an [employer] she was assisted to the ground by her daughters without injury. There is no report of limb shaking or seizure-like activity. Patient recalls coming to well in the ambulance and denied any pain preceding or subsequently. She denies palpitations, dizziness upon standing, previous episode. She denies recent ch coel in medications and is otherwise felt well. In the emergency department she has an unremarkable work-up with exception to orthostatic hypotension and an EKG showing PVCs. Hospital Course Hospital Course: (1) Syncope and collapse Most likely secondary to orthostatic hypotension with mild volume depletion. Possible related to hypoxia as the patient was noted to have profound desaturation event with minimal activity. Patient was admitted to the medical floor on continuous cardiac telemetry. She was rehydrated with IV fluids. VQ scan, fortunately, negative for pulmonary embolus. PT consultation obtained; recommends continued home therapy services. (2) Orthostatic dizziness Resolved following IV fluids. Continue TAMMY hose. (3) COPD (chronic obstructive pulmonary disease) Stable and not in exacerbation at this time. Continue home regiment of Spiriva, Symbicort, and Dymista Continue supplemental oxygen as needed to keep SpO2 >89%; recommend increasing to 4 lpm CPAP nightly No indications for antibiotics or steroid therapy at this time. (4) HTN (hypertension) Continue home dose Losartan and furosemide. Cardiac diet. (5) Debility Pt consulted. Discharge planning consulted. Arrangements have been made for patient to receive home health and PT services. (6) Supplemental oxygen dependent Nasal cannula oxygen CPAP at night Physical Exam Vital Signs: Temp Pulse Resp BP Pulse Ox 97.5 F 71 17 171/74 H 92 01/28/20 14:12 01/28/20 14:12 01/28/20 14:12 01/28/20 14:12 01/28/20 14:12 Intake & Output 01/27/20 01/28/20 01/29/20 06:59 06:59 06:59 Intake Total 100 840 120 Balance 100 840 120 Weight 40 kg 42 kg General appearance: PRESENT: no acute distress, cooperative, thin, well- developed, well-nourished Head exam: PRESENT: atraumatic, normocephalic Eye exam: PRESENT: conjunctiva pink, EOMI, PERRLA. ABSENT: scleral icterus Mouth exam: PRESENT: moist, tongue midline Respiratory exam: PRESENT: clear to auscultation keshia, symmetrical, unlabored, other. ABSENT: rales, rhonchi, wheezes Cardiovascular exam: PRESENT: RRR. ABSENT: diastolic murmur, rubs, systolic murmur Vascular exam: PRESENT: normal capillary refill Extremities exam: PRESENT: full ROM. ABSENT: calf tenderness, clubbing, pedal edema Musculoskeletal exam: PRESENT: ambulatory - With front wheel walker Neurological exam: PRESENT: alert, awake, oriented to person, oriented to place, oriented to time, oriented to situation, CN II-XII grossly intact. ABSENT: motor sensory deficit Psychiatric exam: PRESENT: appropriate affect, normal mood. ABSENT: homicidal ideation, suicidal ideation Skin exam: PRESENT: dry, intact, warm. ABSENT: cyanosis, rash Results Laboratory Results: WBC 7.7 10^3/uL (4.0-10.5) 01/27/20 04:38 RBC 3.25 10^6/uL (3.72-5.28) L 01/27/20 04:38 Hgb 10.0 g/dL (12.0-15.5) L D 01/27/20 04:38 Hct 30.8 % (36.0-47.0) L 01/27/20 04:38 MCV 95 fl (80-97) 01/27/20 04:38 MCH 30.8 pg (27.0-33.4) 01/27/20 04:38 MCHC 32.5 g/dL (32.0-36.0) 01/27/20 04:38 RDW 15.1 % (11.5-14.0) H 01/27/20 04:38 Plt Count 274 10^3/uL (150-450) 01/27/20 04:38 Lymph % (Auto) 6.0 % (13-45) L 01/27/20 04:38 [place] % (Auto) 13.4 % (3-13) H 01/27/20 04:38 Eos % (Auto) 1.9 % (0-6) 01/27/20 04:38 Baso % (Auto) 0.7 % (0-2) 01/27/20 04:38 Absolute Neuts (auto) 6.0 10^3/uL (1.7-8.2) 01/27/20 04:38 Absolute Lymphs (auto) 0.5 10^3/uL (0.5-4.7) 01/27/20 04:38 Absolute Monos (auto) 1.0 10^3/uL (0.1-1.4) 01/27/20 04:38 Absolute Eos (auto) 0.1 10^3/uL (0.0-0.6) 01/27/20 04:38 Absolute Basos (auto) 0.1 10^3/uL (0.0-0.2) 01/27/20 04:38 Total Counted 100 01/26/20 15:00 Seg Neutrophils % 78.0 % (42-78) 01/27/20 04:38 Seg Neuts % (Manual) 85 % (42-78) H 01/26/20 15:00 Lymphocytes % (Manual) 9 % (13-45) L 01/26/20 15:00 Monocytes % (Manual) 5 % (3-13) 01/26/20 15:00 Eosinophils % (Manual) 1 % (0-6) 01/26/20 15:00 Basophils % (Manual) 0 % (0-2) 01/26/20 15:00 Abs Neuts (Manual) 7.1 10^3/uL (1.7-8.2) 01/26/20 15:00 Abs Lymphs (Manual) 0.8 10^3/uL (0.5-4.7) 01/26/20 15:00 Abs Monocytes (Manual) 0.4 10^3/uL (0.1-1.4) 01/26/20 15:00 Absolute Eos (Manual) 0.1 10^3/uL (0.0-0.6) 01/26/20 15:00 Abs Basophils (Manual) 0.0 10^3/uL (0.0-0.2) 01/26/20 15:00 Platelet Estimate Cancelled 01/26/20 14:45 Clumped Platelets PRESENT 01/26/20 15:00 Platelet Comment ADEQUATE 01/26/20 15:00 Anisocytosis SLIGHT 01/26/20 15:00 PT 14.1 SEC (11.4-15.4) 01/26/20 15:47 INR 1.09 01/26/20 15:47 INR (Anticoag Therapy) Cancelled 01/26/20 14:45 APTT 29.8 SEC (23.5-35.8) 01/26/20 15:47 D-Dimer 4.55 ug/mL (0.00-0.50) H 01/26/20 15:47 VBG pH 7.37 (7.30-7.42) 01/26/20 16:25 VBG pCO2 65.5 mmHg (35-63) H* 01/26/20 16:25 VBG HCO3 37.0 mmol/L (20-32) H 01/26/20 16:25 VBG Base Excess 9.6 mmol/L 01/26/20 16:25 Sodium 141.8 mmol/L (137-145) 01/27/20 04:38 Potassium 4.3 mmol/L (3.6-5.0) 01/27/20 04:38 Chloride 99 mmol/L (98-107) 01/27/20 04:38 Carbon Dioxide 40 mmol/L (22-30) H* 01/27/20 04:38 Anion Gap 3 (5-19) L 01/27/20 04:38 BUN 24 mg/dL (7-20) H 01/27/20 04:38 Creatinine 0.97 mg/dL (0.52-1.25) 01/27/20 04:38 Est GFR ( Amer) > 60 (>60) 01/27/20 04:38 Est GFR (Non-Af Amer) Cancelled 01/26/20 14:45 Est GFR (MDRD) Non-Af 56 (>60) L 01/27/20 04:38 Glucose 81 mg/dL (75-110) 01/27/20 04:38 Calcium 8.6 mg/dL (8.4-10.2) 01/27/20 04:38 Phosphorus 4.1 mg/dL (2.5-4.5) 01/26/20 16:25 Magnesium 2.3 mg/dL (1.6-2.3) 01/26/20 16:25 Total Bilirubin 0.3 mg/dL (0.2-1.3) 01/26/20 16:25 Direct Bilirubin 0.3 mg/dL (0.0-0.4) 01/26/20 16:25 Neonat Total Bilirubin Not Reportable 01/26/20 16:25 Neonat Direct Bilirubin Not Reportable 01/26/20 16:25 Neonat Indirect Bili Not Reportable 01/26/20 16:25 AST 36 U/L (14-36) 01/26/20 16:25 ALT 20 U/L (<35) 01/26/20 16:25 Alkaline Phosphatase 86 U/L (38-126) 01/26/20 16:25 Creatine Kinase 33 U/L (30-135) 01/26/20 16:25 CK-MB (CK-2) 2.32 ng/mL (<4.55) 01/26/20 16:25 Troponin I 0.076 ng/mL 01/26/20 20:12 NT-Pro-B Natriuret Pep 1020 pg/mL (<450) H 01/26/20 16:25 Total Protein 7.0 g/dL (6.3-8.2) 01/26/20 16:25 Albumin 3.5 g/dL (3.5-5.0) 01/26/20 16:25 EGFR Cancelled 01/26/20 14:45 Urine Color STRAW 01/26/20 16:30 Urine Appearance CLEAR 01/26/20 16:30 Urine pH 7.0 (5.0-9.0) 01/26/20 16:30 Ur Specific [place] 1.009 01/26/20 16:30 Urine Protein NEGATIVE mg/dL (NEGATIVE) 01/26/20 16:30 Urine Glucose (UA) NEGATIVE mg/dL (NEGATIVE) 01/26/20 16:30 Urine Ketones NEGATIVE mg/dL (NEGATIVE) 01/26/20 16:30 Urine Blood NEGATIVE (NEGATIVE) 01/26/20 16:30 Urine Nitrite (Reflex) NEGATIVE (NEGATIVE) 01/26/20 16:30 Urine Bilirubin NEGATIVE (NEGATIVE) 01/26/20 16:30 Urine Urobilinogen NEGATIVE mg/dL (<2.0) 01/26/20 16:30 Leukocyte Esterase Rfl NEGATIVE (NEGATIVE) 01/26/20 16:30 Urine RBC (Auto) 0 /HPF 01/26/20 16:30 U Hyaline Cast (Auto) 1 /LPF 01/26/20 16:30 Urine WBC (Reflex) 1 /HPF 01/26/20 16:30 Squamous Epi Cells Auto 1 /HPF 01/26/20 16:30 Urine Mucus (Auto) RARE /LPF 01/26/20 16:30 Urine Ascorbic Acid NEGATIVE (NEGATIVE) 01/26/20 16:30 Urine Opiates Screen NEGATIVE 01/26/20 16:30 Urine Methadone Screen NEGATIVE 01/26/20 16:30 Ur Barbiturates Screen NEGATIVE 01/26/20 16:30 Ur Phencyclidine Scrn NEGATIVE 01/26/20 16:30 Ur Amphetamines Screen NEGATIVE 01/26/20 16:30 U Benzodiazepines Scrn NEGATIVE 01/26/20 16:30 Urine Cocaine Screen NEGATIVE 01/26/20 16:30 U Marijuana (THC) Screen NEGATIVE 01/26/20 16:30 Slides for Path Review Cancelled 01/26/20 14:45 01/26/20 01/26/20 01/26/20 14:45 15:00 16:25 CK-MB (CK-2) Cancelled 2.32 Troponin I Cancelled 0.047 NT-Pro-B Natriuret Pep Cancelled 01/26/20 01/26/20 16:25 20:12 CK-MB (CK-2) Troponin I 0.076 NT-Pro-B Natriuret Pep 1020 H Impressions: Chest X-Ray 01/26/20 14:44 IMPRESSION: Borderline cardiomegaly without pulmonary edema. Chronic lung changes. Head CT 01/26/20 14:44 IMPRESSION: MILD CHRONIC CHANGES OF ATROPHY AND MICROVASCULAR ISCHEMIA. NO ACUTE PROCESS. EVIDENCE OF ACUTE STROKE: NO. Chest/Abdomen CTA 01/26/20 17:39 IMPRESSION: Artifact the patient's arms. Imaging is degraded by patient motion, with resultant artifact. The best possible images were obtained. Chronic parenchymal lung change. Patchy areas of airspace disease left upper lobe right lower lobe, of unknown chronicity. Contrast-enhanced imaging was not obtained due to IV infiltration. Chest X-Ray 01/28/20 00:00 IMPRESSION: COPD with chronic parenchymal changes. No acute findings. Lung Scan-VQ NM 01/28/20 00:00 IMPRESSION: Heterogeneous uptake. No large segmental defects. Plan Plan of Treatment: Follow-up with primary care provider within 1 week. Follow-up with established scarifier operator at the earliest available appointment. Start utilizing supplemental oxygen by nasal cannula at 4 L/min. Only ambulate short distances due to intolerance/low oxygen levels with activity. Utilize wheelchair when traveling longer distances (such as when going to stores or doctors appointments). Take medication as prescribed. Eat a heart healthy diet. Do NOT smoke. Return to emergency department as needed for concerning symptoms. Stroke Is this a Stroke Patient?: No Acute Heart Failure - Is this a Heart Failure Patient?: No
== END 2020-01-28 14:54 | disposition home health service (06) ==
LOC: ER 14:31 → EH 21:44 → 4S 22:56
PROVIDERS: ADMIT Internal Medicine; ATTEND Registered Nurse
DX: R55 Syncope and collapse (principal); J44.9 Chronic obstructive pulmonary disease, unspecified; I10 Essential (primary) hypertension; R53.81 Other malaise; Z99.81 Dependence on supplemental oxygen; I25.10 Atherosclerotic heart disease of native coronary artery without angina pectoris; M19.90 Unspecified osteoarthritis, unspecified site; I49.3 Ventricular premature depolarization; R09.02 Hypoxemia; I25.2 Old myocardial infarction; R01.1 Cardiac murmur, unspecified; R79.89 Other specified abnormal findings of blood chemistry; Z60.2 Problems related to living alone; Z87.891 Personal history of nicotine dependence; Z79.899 Other long term (current) drug therapy; Z79.02 Long term (current) use of antithrombotics/antiplatelets; Z79.51 Long term (current) use of inhaled steroids
CPT/HCPCS: 93005; 99291; 99292; 36415 ×2; 82553; 82550; 83735; 84100; 85025 ×2; 85610; 85730; 80048; 80053; 81001; 84484; 80307; 85379; 82803; 83880; 71046; 71045; 78580; 70450; 71275; 93010; 94640 ×3; 97530 ×3; 97116; 97161; 97535 ×2; 97165; A9540; A9270 ×13; J1644; J3490 ×5; Q9969; G0378